=== PATIENT | male | born 1975 | race Caucasian/White ===

== ENCOUNTER → 2016-06-30 | Outpatient (CLI) | payer BC | LOC: RAD 11:30 | PROVIDERS: ATTEND Nurse Practitioner Family | DX: R06.02 Shortness of breath (principal) | CPT/HCPCS: 71020 ==

== ENCOUNTER → 2016-06-30 | Outpatient (REF) | payer BC ==
[2016-06-30 10:59] LABS: BASOPHILS % (AUTO) 1 % (0-2); EOSINOPHILS % (AUTO) 1 % (0-4); MEAN CORPUSCULAR VOLUME 84 FL (80-100); MONOCYTES # (AUTO) 0.4 X10^3; MONOCYTES % (AUTO) 11 % (3-11); NEUTROPHILS # (AUTO) 2.6 X10^3; NEUTROPHILS % (AUTO) 65 % (51-67); PLATELET COUNT 235 10^3uL (150-450); WHITE BLOOD COUNT 4.08 10^3uL (4.0-11.0)
[2016-06-30 11:00] LABS: MEAN CORPUSCULAR HGB CONC 35.8 g/dL (31.0-37.0)
[2016-06-30 11:12] LABS: ALBUMIN 4.6 g/dL (3.4-5.0); ANION GAP 14.4 MEQ/L (3-15); CALCULATED IONIZED CALCIUM 4.3 mg/dL (3.8-4.6); TOTAL PROTEIN 7.4 g/dL (6.4-8.5)
== END ==
LOC: LAB 10:52
PROVIDERS: ATTEND Nurse Practitioner Family
DX: R10.12 Left upper quadrant pain (principal); R06.02 Shortness of breath
CPT/HCPCS: 80053; 85025; 85379

== ENCOUNTER → 2016-08-18 | Outpatient (REF) | payer BC ==
[~2016-08-18] MED LIST: ALBU8.5H6 IH; AMOX500T2 PO; ASPI325T4 PO; AZIT250T81 PO; BSP10T PO; CEPH-507 PO; CLIN-79; CPR500T PO; HYDR-87 PO; HYDR1TAB71 PO; IBUP-1096 PO; LORA0.5T PO; ONDAN4ODT PO; PANT40TA3 PO; TRM50T PO
[2016-08-18 17:32] LABS: BASOPHILS % (AUTO) 0 % (0-2); EOSINOPHILS % (AUTO) 1 % (0-4); LYMPHOCYTES # (AUTO) 1.1 X10^3; MEAN CORPUSCULAR HEMOGLOBIN 29.5 PG (26.0-34.0); MEAN CORPUSCULAR VOLUME 84 FL (80-100); MEAN PLATELET VOLUME 10.7 FL (6.0-9.5); MONOCYTES # (AUTO) 0.3 X10^3; MONOCYTES % (AUTO) 8 % (3-11); NEUTROPHILS # (AUTO) 2.4 X10^3; NEUTROPHILS % (AUTO) 62 % (51-67); PLATELET COUNT 226 10^3uL (150-450); WHITE BLOOD COUNT 3.88 10^3uL (4.0-11.0)
[2016-08-18 18:00] LABS: ERYTHROCYTE SEDIMENTATION RT* 5 mm/hr (0-12)
[2016-08-18 18:12] LABS: ALBUMIN 4.9 g/dL (3.4-5.0); ALKALINE PHOSPHATASE 84 U/L (38-126); ANION GAP 20.4 MEQ/L (3-15); BUN/CREATININE RATIO 14 (10-20); TOTAL PROTEIN 8.1 g/dL (6.4-8.5)
== END ==
LOC: LAB 16:31
PROVIDERS: ATTEND Family Medicine
DX: R53.83 Other fatigue (principal); K21.9 Gastro-esophageal reflux disease without esophagitis; M54.2 Cervicalgia; M54.5 Low back pain
CPT/HCPCS: 80053; 83516; 83520; 85025; 85652; 86038; 86140; 86141; 86256; 86431; 86812

== ENCOUNTER → 2016-08-19 | Outpatient (CLI) | payer BC ==
--- NOTE | 2016-08-19 16:05 | Diagnostic Imaging Report ---
INDICATION: Low back pain. FINDINGS: Three views of the thoracic spine show good alignment. Body heights and disc spaces are well maintained. No evidence of hypertrophic endplate changes. No evidence of bony spondylosis. IMPRESSION: Normal thoracic spine. Dictated by: Dictated on workstation # [id number]
--- NOTE | 2016-08-19 16:08 | Diagnostic Imaging Report ---
INDICATION: Low back pain. FINDINGS: Two views show bilateral pars defect of L5. There is grade 1 spondylolisthesis of L5 anterior on S1. The lumbar vertebral bodies otherwise show good alignment. Body heights and disc spaces well maintained. SI joints are symmetrical. IMPRESSION: 1. 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 Dictated by: Dictated on workstation # [id number]
--- NOTE | 2016-08-19 16:11 | Diagnostic Imaging Report ---
INDICATION: Chronic back pain. Neck pain. FINDINGS: There is straightening of the normal lordotic curve. Body height is well maintained. Disc spaces are well preserved. There is mild hypertrophic lipping of the endplates anteriorly at C5-C6. The atlantoaxial joint appears normal. The prevertebral soft tissues are not widened. No fractures are demonstrated. IMPRESSION: Degenerative cervical disc disease centered at C5-C6. Dictated by: Dictated on workstation # [id number]
== END ==
LOC: RAD 15:03
PROVIDERS: ATTEND Family Medicine
DX: M54.5 Low back pain (principal); M54.2 Cervicalgia; M50.322 Other cervical disc degeneration at C5-C6 level; M47.896 Other spondylosis, lumbar region
CPT/HCPCS: 72040; 72072; 72100

== ENCOUNTER → 2016-08-30 | Outpatient (CLI) | payer BC ==
--- NOTE | 2016-08-30 16:12 | Diagnostic Imaging Report ---
PROCEDURE: MRI lumbar spine. TECHNIQUE: Multiplanar, multisequence MRI of the lumbar spine was performed without contrast. DATE: August 30, 2016. COMPARISON: Lumbar spine radiographs August 19, 2016. INDICATION: A 41-year-old male, spondylolisthesis. FINDINGS: There is grade 1 anterolisthesis of L5 on S1, which measures 7.5 mm. There are bilateral L5 pars interarticularis defects. There is no prominent marrow edema adjacent to the pars interarticularis defects. There is mild disc height loss at L5-S1. There is mild disc height loss at L4-L5. There is disc desiccation at both levels. The additional alignment of the lumbar spine is unremarkable. The bone marrow signal is grossly unremarkable. The visualized cord and conus medullaris is unremarkable and terminates at the L2 level. L1-L2: There is no disc bulge. The facet joints and ligamentum flavum are unremarkable. There is no foraminal narrowing. There is no spinal canal stenosis. L2-L3: There is no disc bulge. The facet joints and ligamentum flavum are unremarkable. There is no foraminal narrowing. There is no spinal canal stenosis. L3-L4: There is no disc bulge. The facet joints and ligamentum flavum are unremarkable. There is no foraminal narrowing. There is no spinal canal stenosis. L4-L5: There is an annular tear. There is a small central disc protrusion without nerve root contact. There are mild bilateral facet degenerative changes without ligamentum flavum hypertrophy. There is no foraminal narrowing. There is no spinal canal stenosis. L5-S1: There is uncovering of the disc relating to the grade 1 anterolisthesis. There is no superimposed disc protrusion or extrusion. The facet joints and ligamentum flavum are unremarkable. There is no foraminal narrowing. There is no spinal canal stenosis. IMPRESSION: 1. Bilateral L5 pars interarticularis defects with associated grade 1 anterolisthesis of L5 on S1 measuring 7.5 mm. 2. L4-L5 annular tear and small central disc protrusion without nerve root contact. Mild bilateral facet degenerative changes at L4-L5. 3. No high-grade foraminal or spinal stenosis. Dictated by: Dictated on workstation # [id number]
[2016-09-01 15:34] LABS: HLA B27 Negative
== END ==
LOC: RAD 14:32
PROVIDERS: ATTEND Family Medicine
DX: M43.17 Spondylolisthesis, lumbosacral region (principal); R53.83 Other fatigue; K21.9 Gastro-esophageal reflux disease without esophagitis; G47.10 Hypersomnia, unspecified; M54.2 Cervicalgia
CPT/HCPCS: 72148; 83516; 83520; 86256; 86812